=== PATIENT | female | born 1955 | race Two or more races ===

== ENCOUNTER → 2018-04-08 | Outpatient (CLI) | payer BC | END | disposition home or self-care (01) | LOC: HKI 14:01 | DX: S43.004D Unspecified dislocation of right shoulder joint, subsequent encounter (principal); X58.XXXD Exposure to other specified factors, subsequent encounter; M19.011 Primary osteoarthritis, right shoulder | CPT/HCPCS: 73030; 73030-RT ==

== ENCOUNTER → 2018-04-29 | Outpatient (CLI) | payer BC | END | disposition home or self-care (01) | LOC: HKI 14:17 | DX: S42.251D Displaced fracture of greater tuberosity of right humerus, subsequent encounter for fracture with routine healing (principal); X58.XXXD Exposure to other specified factors, subsequent encounter | CPT/HCPCS: 73030; 73030-RT ==

== ENCOUNTER → 2018-05-20 | Outpatient (CLI) | payer BC | END | disposition home or self-care (01) | LOC: HKI 13:21 | DX: Z09 Encounter for follow-up examination after completed treatment for conditions other than malignant neoplasm (principal); S42.251D Displaced fracture of greater tuberosity of right humerus, subsequent encounter for fracture with routine healing; X58.XXXD Exposure to other specified factors, subsequent encounter | CPT/HCPCS: 73030; 73030-RT ==

== ENCOUNTER → 2018-06-10 | Outpatient (CLI) | payer BC | END | disposition home or self-care (01) | LOC: HKI 13:03 | DX: M25.611 Stiffness of right shoulder, not elsewhere classified (principal); Z96.611 Presence of right artificial shoulder joint | CPT/HCPCS: 73030; 73030-RT ==